=== PATIENT | male | born 1945 | race American Indian/Alaskan Native ===

== ENCOUNTER 2018-07-14 10:15 | Outpatient (CLI) | payer OTHER ==
[~2018-07-14 10:15] MED LIST: CIPRO750 MG PO; CLONAZEPAM1 MG PO; DOCUSATE SODIU100 MG PO; METHYLPRED4 MG/DOSE- PO; NEURONTIN PO; PERCOCET 5/3251 TAB PO
== END 2018-07-14 10:22 | disposition home or self-care (01) ==
LOC: RAD 10:15
DX: M25.552 Pain in left hip (principal)

== ENCOUNTER 2019-10-14 09:23 | Outpatient (CLI) | payer OTHER | END 2019-10-14 09:32 | disposition home or self-care (01) | LOC: RAD 09:23 | DX: R05 Cough (principal) ==

== ENCOUNTER 2020-05-27 07:41 | Outpatient (CLI) | payer OTHER | END 2020-05-27 07:51 | disposition home or self-care (01) | LOC: NUCLEAR 07:41 | PROVIDERS: ATTEND Internal Medicine Cardiovascular Disease | DX: I20.8 Other forms of angina pectoris (principal) | CPT/HCPCS: 78452; 93017; A9500; J0153 ==

== ENCOUNTER 2020-10-10 08:58 | Outpatient (CLI) | payer OTHER | END 2020-10-10 09:07 | disposition home or self-care (01) | LOC: SONOGRAMA 08:58 | PROVIDERS: ATTEND Internal Medicine | DX: E04.2 Nontoxic multinodular goiter (principal); E04.1 Nontoxic single thyroid nodule; E05.90 Thyrotoxicosis, unspecified without thyrotoxic crisis or storm ==

== ENCOUNTER 2020-10-23 15:59 | Outpatient (CLI) | payer OTHER | END 2020-10-23 16:01 | disposition home or self-care (01) | LOC: RAD 15:59 | PROVIDERS: ATTEND Urology | DX: N20.0 Calculus of kidney (principal) ==

== ENCOUNTER 2023-04-01 13:03 | Outpatient (CLI) | payer OTHER | END 2023-04-01 13:10 | disposition home or self-care (01) | LOC: TOM 13:03 | PROVIDERS: ATTEND Urology | DX: R31.0 Gross hematuria (principal) ==

== ENCOUNTER 2023-04-01 13:54 | Outpatient (CLI) | payer OTHER | END 2023-04-01 13:58 | disposition home or self-care (01) | LOC: LAB 13:54 | PROVIDERS: ATTEND Urology | DX: C61 Malignant neoplasm of prostate (principal); R31.0 Gross hematuria ==